=== PATIENT | female | born 1975 | race Caucasian/White ===

== ENCOUNTER 2018-04-03 12:03 | Outpatient (CLI) | payer BC | END 2018-04-03 12:04 | disposition home or self-care (01) | LOC: BICMAMMO 12:03 | PROVIDERS: ATTEND Family Medicine | DX: Z12.31 Encounter for screening mammogram for malignant neoplasm of breast (principal) | CPT/HCPCS: 77063; 77067 ==

== ENCOUNTER 2018-07-01 12:09 | Outpatient (CLI) | payer BC ==
--- NOTE | 2018-07-01 14:19 | ULT ---
LIMITED RIGHT AXILLARY ULTRASOUND: 07/01/2018 PROVIDED CLINICAL HISTORY: Right axillary lymph node. TECHNIQUE: Limited sonographic interrogation of the right axilla was performed. FINDINGS: There is a normal appearing lymph node present in the region of palpable concern. This measures abou t 1.3 x 0.6 cm. No evidence for mass or lymph node enlargement. IMPRESSION: No concerning findings are sonographically apparent in the region of palpable concern. Negative imag ing findings should not preclude further evaluation of a clinically suspicious area. The patient is referred back to her clinician. POS: OFF
== END 2018-07-01 12:10 | disposition home or self-care (01) ==
LOC: BICULT 12:09
PROVIDERS: ATTEND Family Medicine
DX: R59.0 Localized enlarged lymph nodes (principal)
CPT/HCPCS: 76999

== ENCOUNTER 2019-04-09 11:57 | Outpatient (CLI) | payer BC ==
--- NOTE | 2019-04-09 13:38 | ULT ---
THYROID ULTRASOUND: 04/09/19 INDICATION: Enlarged thyroid gland. TECHNIQUE: Noel scale and color Doppler images were obtained of the thyroid gland. COMPARISON: None. FINDINGS: The right thyroid lobe measured 5.4 x 2.1 x 1.4 cm. Left thyroid lobe measures 3.9 x 1.7 x 1.4 cm. Th ere is a 3 mm hypoechoic partially cystic nodule involving the inferior pole of the left thyroid glan d. No suspicious thyroid nodule seen within the right thyroid lobe. IMPRESSION: 1. Small TI-RADS 1 lesion involving the left thyroid lobe. 2. Heterogeneity of the thyroid gland. POS: OFF
--- NOTE | 2019-04-14 06:45 | MMO ---
Bilateral MAMMO Bilat Screen [facility]. CLINICAL HISTORY: Patient is 43 years old and is seen for screening. The patient has no family history of breast cancer. The patient has no personal history of cancer. VIEWS: The views performed were: bilateral craniocaudal with tomosynthesis and bilateral mediolateral oblique with tomosynthesis. FILMS COMPARED: The present examination has been compared to a prior imaging study performed at [facility] on 04/03/2018. MAMMOGRAM FINDINGS: The breasts are heterogeneously dense, which could obscure a lesion on mammography. There is a stable intramammary lymph node seen in the outer region of the right breast. There are no suspicious masses, suspicious calcifications, or new areas of architectural distortion. IMPRESSION: THERE IS NO MAMMOGRAPHIC EVIDENCE OF MALIGNANCY. A ROUTINE FOLLOW-UP MAMMOGRAM IN 1 YEAR IS RECOMMENDED. THE RESULTS OF THIS EXAM WERE SENT TO THE PATIENT. ACR BI-RADS Category 2 - Benign finding MAMMOGRAPHY NOTE: 1. A negative mammogram report should not delay a biopsy if a dominant of clinically suspicious mass is present. 2. Approximately 10% to 15% of breast cancers are not detected by mammography. 3. Adenosis and dense breasts may obscure an underlying neoplasm. Reported by: DEANN NARVAEZ MD Electonically Signed: [id number]
== END 2019-04-09 11:58 | disposition home or self-care (01) ==
LOC: BICULT 11:57
PROVIDERS: ATTEND Family Medicine
DX: Z12.31 Encounter for screening mammogram for malignant neoplasm of breast (principal); E04.9 Nontoxic goiter, unspecified; E07.89 Other specified disorders of thyroid
CPT/HCPCS: 76536; 77063; 77067

== ENCOUNTER 2022-03-16 15:51 | Outpatient (CLI) | payer BC | END 2022-03-16 15:52 | disposition home or self-care (01) | LOC: ULT 15:51 | PROVIDERS: ATTEND Family Medicine | DX: M25.562 Pain in left knee (principal); M79.89 Other specified soft tissue disorders; Z82.49 Family history of ischemic heart disease and other diseases of the circulatory system ==

== ENCOUNTER 2023-05-01 11:33 | Outpatient (CLI) | payer BC | END 2023-05-01 11:34 | disposition home or self-care (01) | LOC: RAD 11:33 | PROVIDERS: ATTEND Family Medicine | DX: M51.9 Unspecified thoracic, thoracolumbar and lumbosacral intervertebral disc disorder (principal); M47.816 Spondylosis without myelopathy or radiculopathy, lumbar region; M46.06 Spinal enthesopathy, lumbar region; M89.38 Hypertrophy of bone, other site | CPT/HCPCS: 72100 ==

== ENCOUNTER 2023-06-18 08:12 | Outpatient (CLI) | payer BC | END 2023-06-18 08:13 | disposition home or self-care (01) | LOC: BICMAMMO 08:12 | PROVIDERS: ATTEND Family Medicine | DX: Z12.31 Encounter for screening mammogram for malignant neoplasm of breast (principal) | CPT/HCPCS: 77063; 77067 ==

== ENCOUNTER 2024-07-15 13:29 | Outpatient (CLI) | payer BC | END 2024-07-15 13:30 | disposition home or self-care (01) | LOC: BICMAMMO 13:29 | PROVIDERS: ATTEND Family Medicine | DX: Z12.31 Encounter for screening mammogram for malignant neoplasm of breast (principal) | CPT/HCPCS: 77063; 77067 ==

== ENCOUNTER 2025-04-08 08:49 | Outpatient (CLI) | payer OTHER | END 2025-04-08 08:50 | disposition home or self-care (01) | LOC: MRI 08:49 | PROVIDERS: ATTEND Podiatrist | DX: M76.62 Achilles tendinitis, left leg (principal); M72.2 Plantar fascial fibromatosis; S96.812D Strain of other specified muscles and tendons at ankle and foot level, left foot, subsequent encounter ==